=== PATIENT | female | born 2000 | race Caucasian/White ===

== ENCOUNTER 2023-05-06 14:28 | Outpatient (REF) | payer OTHER, SELFPAY ==
[2023-05-10 12:12] LABS: Age Gdln ACOG Testing Note (.); IGP, rfx Aptima HPV ASCU Note (.)
== END 2023-05-06 14:29 | disposition home or self-care (01) ==
LOC: LAB 14:28
PROVIDERS: Visit Provider Obstetrics & Gynecology
DX: Z01.419 Encounter for gynecological examination (general) (routine) without abnormal findings (principal)
CPT/HCPCS: G0145

== ENCOUNTER 2025-10-28 14:49 | Outpatient (REF) | payer OTHER, SELFPAY ==
[2025-10-30 13:08] LABS: Age Gdln ACOG Testing Note (.); IGP, rfx Aptima HPV ASCU Note (.)
== END 2025-10-28 14:50 | disposition home or self-care (01) ==
LOC: LAB 14:49
PROVIDERS: Visit Provider Nurse Practitioner Family
DX: Z01.419 Encounter for gynecological examination (general) (routine) without abnormal findings (principal)
CPT/HCPCS: 88175